=== PATIENT | female | born 1985 | race Caucasian/White ===

== ENCOUNTER 2017-10-17 17:40 | Emergency (ER) | payer SELFPAY ==
[~2017-10-17] VITALS: Ht 177.8 cm; Wt 67.3 kg
[2017-10-17 18:44] LABS: BASOPHILS # (AUTO) 0.05 x10^3/uL (0-0.1); BASOPHILS % (AUTO) 1 % (0-1); EOSINOPHILS # (AUTO) 0.26 x10^3/uL (0-0.4); EOSINOPHILS % (AUTO) 3 % (1-7); LYMPHOCYTES # (AUTO) 2.48 x10^3/uL (1-3.4); LYMPHOCYTES % (AUTO) 31 % (22-44); MD NO; MEAN CORPUSCULAR HEMOGLOBIN 28.6 pg (27.0-34.8); MEAN CORPUSCULAR VOLUME 86.6 fL (80-100); MEAN PLATELET VOLUME 8.5 fL (7.4-10.4); MONOCYTES # (AUTO) 1.06 x10^3/uL (0.2-0.8); MONOCYTES % (AUTO) 13 % (2-9); NEUTROPHILS # (AUTO) 4.17 x10^3/uL (1.8-6.8); NEUTROPHILS % (AUTO) 52 % (42-75); PLATELET COUNT 283 x10^3/uL (130-400); RED BLOOD COUNT 4.56 x10^6/uL (3.82-5.3); RED CELL DISTRIBUTION WIDTH 14.8 % (9.6-15.2)
[2017-10-17 18:46] LABS: CULTURE INDICATED? YES; MICROSCOPIC AUTO
[2017-10-17 18:58] LABS: ALANINE AMINOTRANSFERASE 69 U/L (12-78); ALBUMIN 3.7 g/dL (3.4-5.0); ANION GAP 6 mmol/L (5-15); CALCIUM 8.3 mg/dL (8.5-10.1); CHLORIDE 108 mmol/L (98-107); CREATININE 0.89 mg/dL (0.55-1.02)
[2017-10-17 19:02] LABS: ALKALINE PHOSPHATASE 66 U/L (45-117); BILIRUBIN,TOTAL 0.3 mg/dL (0.2-1.0); TOTAL PROTEIN 6.6 g/dL (6.4-8.2)
[2017-10-17 19:38] VITALS: BP 117/76
== END 2017-10-17 19:41 | disposition home or self-care (01) ==
LOC: ED 18:00
DX: R10.84 Generalized abdominal pain (principal)
CPT/HCPCS: 36415; 80053; 81001; 84703; 85025; 87086; 99284

== ENCOUNTER 2018-08-28 06:45 | Outpatient (CLI) | payer SELFPAY ==
[~2018-08-28] VITALS: Ht 177.8 cm; Wt 91.8 kg
[2018-08-28 07:03] VITALS: BP 129/75
[2018-08-28 08:27] LABS: AMPHETAMINE SCREEN, URINE Negative (Negative); BARBITURATE SCREEN, URINE Negative (Negative); BENZODIAZEPINE SCREEN, URINE Negative (Negative); CANNABINOID SCREEN, URINE Negative (Negative); COCAINE SCREEN, URINE Negative (Negative); METHADONE SCREEN, URINE Negative (Negative); OPIATE SCREEN, URINE Negative (Negative)
[2018-08-28 08:38] LABS: MICROSCOPIC INDICATED
[2018-08-28] MEDS ORDERED: PREN1TAB60 PO (09:23)
== END 2018-08-28 09:55 | disposition home or self-care (01) ==
LOC: LDOP 06:45
PROVIDERS: ATTEND Obstetrics & Gynecology
DX: O26.893 Other specified pregnancy related conditions, third trimester (principal); R10.9 Unspecified abdominal pain; Z3A.37 37 weeks gestation of pregnancy
CPT/HCPCS: 59025; 80307; 81001; 87086; 99201; G0463

== ENCOUNTER → 2019-11-16 | Outpatient (CLI) | payer OTHER ==
[~2019-11-16] MED LIST: OMNIPAQUE 350 MG/ML, 100ML BOTTLE ONE; PREN1TAB60 PO
== END | disposition home or self-care (01) ==
LOC: RAD 11:45
PROVIDERS: ATTEND Nurse Practitioner Critical Care Medicine
DX: S12.031D Nondisplaced posterior arch fracture of first cervical vertebra, subsequent encounter for fracture with routine healing (principal); X58.XXXD Exposure to other specified factors, subsequent encounter; I65.23 Occlusion and stenosis of bilateral carotid arteries
CPT/HCPCS: 70498; 72072; 72125; Q9967

== ENCOUNTER 2020-01-08 12:52 | Outpatient (CLI) | payer OTHER ==
[~2020-01-08 12:52] MED LIST changes: -OMNIPAQUE 350 MG/ML, 100ML BOTTLE ONE
[2020-01-08] MEDS ORDERED: OMNIPAQUE 350 MG/ML, 75ML BOTTLE ONE (13:35)
== END 2020-01-08 23:59 | disposition home or self-care (01) ==
LOC: RAD 12:52
PROVIDERS: ATTEND Registered Nurse
DX: S12.001A Unspecified nondisplaced fracture of first cervical vertebra, initial encounter for closed fracture (principal); I77.74 Dissection of vertebral artery; X58.XXXA Exposure to other specified factors, initial encounter; Y93.89 Activity, other specified; Y92.89 Other specified places as the place of occurrence of the external cause; Y99.8 Other external cause status
CPT/HCPCS: 70498; Q9967